=== PATIENT | female | born 1930 | race Caucasian/White ===

== ENCOUNTER 2016-04-26 13:24 | Emergency (ER) | payer MEDICARE ==
[2016-04-26] MEDS ORDERED: Meclizine TAB* 12.5 MG PO ONE (14:33)
[2016-04-26] MEDS ORDERED: Meclizine TAB* 12.5 MG ONE (14:35)
--- NOTE | 2016-04-26 14:47 | RAD ---
INDICATION: Vertigo COMPARISON: None TECHNIQUE: Noncontrast axial source images were acquired from the skull base to the vertex. FINDINGS: Ventricles/sulci: There is cortical atrophy with compensatory dilatation of the CSF spaces. Brain parenchyma: There is periventricular and subcortical white matter change compatible with chronic ischemia. Intracranial hemorrhage:None. Extra-axial spaces: There are no abnormal extra axial fluid collections or evidence of extra-axial mass. Calvarium: There is no calvarial fracture or other calvarial abnormality. Scalp: There is no evidence of scalp or extracalvarial soft tissue abnormality. Paranasal sinuses/mastoid: The paranasal sinuses and mastoid air cells are clear. Other: None. IMPRESSION: CORTICAL ATROPHY WITH CHRONIC MICROVASCULAR ISCHEMIC CHANGES. NO ACUTE FINDINGS.
[2016-04-26 16:19] LABS: Hematocrit 36 % (35-47); Hemoglobin 11.7 g/dl (12.0-16.0); Mean Corpuscular HGB Conc 33 g/dl (31-36); Mean Corpuscular Hemoglobin 30 pg (27-31); Mean Corpuscular Volume 92 fL (80-97); Mean Platelet Volume 10 um3 (7.4-10.4); Red Blood Count 3.88 10^6/ul (4.0-5.4); Red Cell Distribution Width 15 % (10.5-15); White Blood Count 11.3 10^3/ul (3.5-10.8)
[2016-04-26 16:33] LABS: Albumin 3.9 g/dL (3.2-5.2); BUN/Creatinine Ratio 20.4 (8-20); Calcium 9.3 mg/dL (8.6-10.3); EGFR African American 58.9 (>60); EGFR Non-African American 45.8 (>60); Globulin 3.4 g/dL (2-4); Potassium 4.1 mmol/L (3.5-5.0); Total Bilirubin 0.3 mg/dL (0.2-1.0); Total Protein 7.3 g/dL (6.4-8.9)
[2016-04-26 16:34] LABS: Troponin I 0.01 ng/mL (<0.04)
--- NOTE | 2016-04-26 16:43 | RAD ---
INDICATION: 83-year-old with dizziness. Negative CT brain COMPARISON: CT brain same date TECHNIQUE: sagittal T1 FLAIR, axial diffusion, axial T1 FLAIR, axial T2, axial T2 FLAIR, and SWI images were acquired. FINDINGS: Craniocervical junction: The craniocervical junction appears normal. Ventricles/sulci: There is cortical atrophy with compensatory dilatation of the CSF spaces. Brain parenchyma: There are T2-weighted hyperintensities in the periventricular and subcortical white matter consistent with chronic microvascular ischemia. Intracranial hemorrhage: There is no intracranial hemorrhage. Extra-axial spaces: There are no extra-axial fluid collections or masses. Orbits: There are no MR abnormalities of the orbital structures. Paranasal sinuses/mastoid: The paranasal sinuses are clear. The mastoid air cells are well aerated.. Vascular: No abnormalities are seen. Other: None IMPRESSION: CORTICAL ATROPHY WITH CHRONIC MICROVASCULAR ISCHEMIC CHANGE. NO ACUTE FINDINGS.
[2016-04-26 18:17] VITALS: BP 136/64
--- NOTE | 2016-04-28 13:36 | ED ---
Dmitriy Marshall Billy, scribed for César Arriola MD on 04/26/16 at 1415 . Dizziness - HPI Summary HPI Summary: Patient is an 85 year-old female coming to [facility] presenting with intermittent dizziness starting 5 days ago. Patient describes roomspinning sensation that is worse with positional change. She denies any visual changes, nausea, vomiting, or diaphoresis. She is able to ambulate well. She denies any other complaints. - History Of Current Complaint Chief Complaint: EDDizziness Stated Complaint: DIZZY Time Seen by Provider: 04/26/16 14:03 Hx Obtained From: Patient Onset/Duration: Still Present Timing: Days Severity Initially: Moderate Severity Currently: Moderate Character: Room Spinning Aggravating Factor(s): Position Change Alleviating Factor(s): Nothing Associated Signs And Symptoms: Positive: Diaphoresis. Negative: Nausea, Vomiting, Unsteady Gait - Allergies/Home Medications Allergies/Adverse Reactions: Allergies Allergy/AdvReac Type Severity Reaction Status Date / Time No Known Allergies Allergy Verified 03/10/14 12:14 PMH/Surg Hx/FS Hx/Imm Hx Cardiovascular History: Reports: Hx Hypercholesterolemia, Hx Hypertension, Other Cardiovascular Problems/Disorders - MVP Musculoskeletal History: Reports: Hx Arthritis Infectious Disease History: Yes Infectious Disease History: Denies: Traveled Outside the [place] in Last 30 Days - Family History Known Family History: Positive: Hypertension - Social History Alcohol Use: Rare Substance Use Type: Reports: None Smoking Status (MU): Never Smoked Tobacco Review of Systems Negative: Skin Diaphoresis Negative: Photophobia, Blurred Vision, Diplopia Negative: Vomiting, Nausea Neurological: Other - dizzy All Other Systems Reviewed And Are Negative: Yes Physical Exam Triage Information Reviewed: Yes Vital Signs On Initial Exam: Initial Vitals Temp Pulse Resp BP Pulse Ox 98.7 F 83 18 140/89 100 04/26/16 13:26 04/26/16 13:26 04/26/16 13:26 04/26/16 13:26 04/26/16 13:26 Vital Signs Reviewed: Yes Appearance: Positive: Well-Appearing, No Pain Distress Skin: Positive: Warm, Skin Color Reflects Adequate Perfusion, Dry Head/Face: Positive: Normal Head/Face Inspection Eyes: Positive: Normal ENT: Positive: Other - Negative Whittaker-Hallpike Neck: Positive: Supple, Nontender Respiratory/Lung Sounds: Positive: Clear to Auscultation, Breath Sounds Present Cardiovascular: Positive: RRR Abdomen Description: Positive: Nontender, Soft Musculoskeletal: Positive: Normal Neurological: Positive: Normal Psychiatric: Positive: Normal, Affect/Mood Appropriate AVPU Assessment: Alert Diagnostics - Vital Signs Vital Signs Temp Pulse Resp BP Pulse Ox 04/26/16 13:26 98.7 F 83 18 140/89 100 - Laboratory Result Diagrams: 04/26/16 15:50 04/26/16 15:50 Lab Statement: Any lab studies that have been ordered have been reviewed, and results considered in the medical decision making process. - CT brain CT Interpretation Completed By: Radiologist - CORTICAL ATROPHY WITH CHRONIC MICROVASCULAR ISCHEMIC CHANGES. NO ACUTE FINDINGS. - EKG 1332 EKG Interpretation: NSR 76 bpm, RBBB Dizzy Course/Dx - Course Course Of Treatment: Ms. yLle presented with a week of mild vertigo symptoms. Her Whittaker-Halpaike was negative and her wymptoms were equivocal for a central etiology vs peripheral. I spoke with Dt. Lim who recommended an MRI. - Diagnoses Provider Diagnoses: Vertigo - Provider Notifications Discussed Care Of Patient with: Dr. Lim (neurology) @ 1551: recommends brain MRI. Dr. Moore - 1600 change of shift Discharge - Discharge Plan Condition: Stable Disposition: HOME Prescriptions: Meclizine TAB* [Antivert 12.5 TAB*] 25 mg PO TID PRN #20 tab PRN Reason: Dizziness Patient Education Materials: Benign Paroxysmal Positional Vertigo (ED), Dizziness (ED) Referrals: [facility] [place] [facility] [Outside] Non Staff,Doctor [Primary Care Provider] - The documentation as recorded by the Dmitriy ellis Billy accurately reflects the service I personally performed and the decisions made by me, César Arriola MD.
== END 2016-04-26 18:15 | disposition home or self-care (01) ==
LOC: ED 13:24
DX: R42 Dizziness and giddiness (principal); I10 Essential (primary) hypertension; E78.00 Pure hypercholesterolemia, unspecified
CPT/HCPCS: 36415; 70450; 70551; 80053; 83735; 84484; 85025; 93005; 99282; A9270-GY

== ENCOUNTER 2016-05-14 10:46 | Emergency (ER) | payer MEDICARE ==
[2016-05-14] MEDS ORDERED: NS 0.9% 1000 ML* 1,000 ML IV ONE ×2 (13:40→14:34)
[2016-05-14] MEDS ORDERED: Ondansetron INJ* 2 MG/ML VIAL IV ONE (13:40)
[2016-05-14 14:01] LABS: Hematocrit 38 % (35-47); Hemoglobin 12.3 g/dl (12.0-16.0); Mean Corpuscular HGB Conc 33 g/dl (31-36); Mean Corpuscular Hemoglobin 30 pg (27-31); Mean Corpuscular Volume 91 fL (80-97); Mean Platelet Volume 10 um3 (7.4-10.4); Red Blood Count 4.14 10^6/ul (4.0-5.4); Red Cell Distribution Width 15 % (10.5-15); White Blood Count 14.3 10^3/ul (3.5-10.8)
[2016-05-14 14:18] LABS: Albumin 3.8 g/dL (3.2-5.2); C Reactive Protein 213.5 mg/L (< 5.00); Calcium 9.1 mg/dL (8.6-10.3); EGFR African American 34.4 (>60); EGFR Non-African American 26.7 (>60); Globulin 3.8 g/dL (2-4); Potassium 3.2 mmol/L (3.5-5.0); Total Bilirubin 0.4 mg/dL (0.2-1.0); Total Protein 7.6 g/dL (6.4-8.9)
[2016-05-14 15:37] VITALS: BP 123/59
--- NOTE | 2016-05-14 15:54 | ED ---
Rolando, DoctorScarlett, scribed for César Arriola MD on 05/14/16 at 1500 . GI/ HPI - HPI Summary HPI Summary: 85 year old female arrived to [facility] c/o diarrhea for the past three days. She reports very watery diarrhea, as well as nausea, intermittent vomiting, and abdominal cramping. However, she denies any hematochezia. She began taking Amoxicillin two days ago, but was not taking any other Abx prior to onset of her symptoms. She does not currently have a PCP. - History of Current Complaint Chief Complaint: EDAbdPain Time Seen by Provider: 05/14/16 13:15 Stated Complaint: ABD PAIN /DIARRHEA Hx Obtained From: Patient Onset/Duration: Started Days Ago - onset three days ago Timing: Intermittent Severity: Moderate Current Severity: Moderate Pain Intensity: 5 Location of Pain: Diffuse - abdominal cramping Associated Signs and Symptoms: Positive: Nausea, Vomiting, Diarrhea, Abdominal Pain - cramping. Negative: Hematemesis, Blood w/Stool - Allergy/Home Medications Allergies/Adverse Reactions: Allergies Allergy/AdvReac Type Severity Reaction Status Date / Time No Known Allergies Allergy Verified 03/10/14 12:14 PMH/Surg Hx/FS Hx/Imm Hx Endocrine/Hematology History: Denies: Hx Diabetes Cardiovascular History: Reports: Hx Hypercholesterolemia, Hx Hypertension, Other Cardiovascular Problems/Disorders - MVP Denies: Hx Pacemaker/ICD Respiratory History: Denies: Hx Asthma History: Denies: Hx Renal Disease Musculoskeletal History: Reports: Hx Arthritis Sensory History: Denies: Hx Hearing Aid Psychiatric History: Denies: Hx Panic Disorder - Surgical History Surgery Procedure, Year, and Place: RT. KNEE TKR;. GALBLADDER;. APPENDECTOMY; Infectious Disease History: No Infectious Disease History: Denies: Traveled Outside the [place] in Last 30 Days - Family History Known Family History: Positive: Hypertension - Social History Alcohol Use: Rare Substance Use Type: Reports: None Smoking Status (MU): Never Smoked Tobacco Review of Systems Negative: Fever Positive: Abdominal Pain - abdominal cramping, Vomiting, Diarrhea, Nausea All Other Systems Reviewed And Are Negative: Yes Physical Exam Triage Information Reviewed: Yes Vital Signs On Initial Exam: Initial Vitals Temp Pulse Resp BP Pulse Ox 98.5 F 94 18 113/60 97 05/14/16 10:53 05/14/16 10:53 05/14/16 10:53 05/14/16 10:53 05/14/16 10:53 Vital Signs Reviewed: Yes Appearance: Positive: Well-Appearing, No Pain Distress Skin: Positive: Warm, Skin Color Reflects Adequate Perfusion, Dry Head/Face: Positive: Normal Head/Face Inspection Eyes: Positive: Normal ENT: Positive: Normal ENT inspection Neck: Positive: Supple, Nontender Respiratory/Lung Sounds: Positive: Clear to Auscultation, Breath Sounds Present Cardiovascular: Positive: RRR Abdomen Description: Positive: Nontender, Soft Bowel Sounds: Positive: Present Musculoskeletal: Positive: Normal Neurological: Positive: Normal Psychiatric: Positive: Normal, Affect/Mood Appropriate - [place] Coma Scale Coma Scale Total: 15 Diagnostics - Vital Signs Vital Signs Temp Pulse Resp BP Pulse Ox 05/14/16 12:43 98.5 F 84 18 120/57 96 05/14/16 10:53 98.5 F 94 18 113/60 97 - Laboratory Lab Results: Lab Results 05/14/16 05/14/16 Range/Units 13:50 13:50 WBC 14.3 H (3.5-10.8) 10^3/ul RBC 4.14 (4.0-5.4) 10^6/ul Hgb 12.3 (12.0-16.0) g/dl Hct 38 (35-47) % MCV 91 (80-97) fL MCH 30 (27-31) pg MCHC 33 (31-36) g/dl RDW 15 (10.5-15) % Plt Count 156 (150-450) 10^3/ul MPV 10 (7.4-10.4) um3 Neut % (Auto) 83.9 H (38-83) % Lymph % (Auto) 8.8 L (25-47) % Dillon % (Auto) 6.4 (1-9) % Eos % (Auto) 0.6 (0-6) % Baso % (Auto) 0.3 (0-2) % Absolute Neuts (auto) 12.0 H (1.5-7.7) 10^3/ul Absolute Lymphs (auto) 1.3 (1.0-4.8) 10^3/ul Absolute Monos (auto) 0.9 H (0-0.8) 10^3/ul Absolute Eos (auto) 0.1 (0-0.6) 10^3/ul Absolute Basos (auto) 0 (0-0.2) 10^3/ul Absolute Nucleated RBC 0.01 10^3/ul Nucleated RBC % 0 Sodium 132 L (133-145) mmol/L Potassium 3.2 L (3.5-5.0) mmol/L Chloride 99 L (101-111) mmol/L Carbon Dioxide 21 L (22-32) mmol/L Anion Gap 12 H (2-11) mmol/L BUN 36 H (6-24) mg/dL Creatinine 1.80 H (0.51-0.95) mg/dL Est GFR ( Amer) 34.4 (>60) Est GFR (Non-Af Amer) 26.7 (>60) BUN/Creatinine Ratio 20.0 (8-20) Glucose 113 H (70-100) mg/dL Calcium 9.1 (8.6-10.3) mg/dL Total Bilirubin 0.40 (0.2-1.0) mg/dL AST 21 (13-39) U/L ALT 13 (7-52) U/L Alkaline Phosphatase 81 (34-104) U/L C-Reactive Protein 213.50 H (< 5.00) mg/L Total Protein 7.6 (6.4-8.9) g/dL Albumin 3.8 (3.2-5.2) g/dL Globulin 3.8 (2-4) g/dL Albumin/Globulin Ratio 1.0 (1-3) Result Diagrams: 05/14/16 13:50 05/14/16 13:50 Lab Statement: Any lab studies that have been ordered have been reviewed, and results considered in the medical decision making process. GIGU Course/Dx - Course Course Of Treatment: Polly Lyle presented with a C/O wattery diarrhea for the last 3 days. She was found to be pretty dry and rehydrated here. She felt better and had no further stools. I encouraged her to F/U if the diarrhea resumed as we were not able to get a sample. - Diagnoses Provider Diagnoses: Gastroenteritis, Dehydration Discharge - Discharge Plan Condition: Stable Disposition: HOME Patient Education Materials: Gastroenteritis (ED), Dehydration (ED) Referrals: [facility] [place]Outside] Additional Instructions: Follow up with [facility]. The documentation as recorded by the Doctor ellis Tahera accurately reflects the service I personally performed and the decisions made by me, César Arriola MD.
== END 2016-05-14 15:30 | disposition home or self-care (01) ==
LOC: ED 10:46
DX: K52.9 Noninfective gastroenteritis and colitis, unspecified (principal); E86.0 Dehydration; R11.2 Nausea with vomiting, unspecified; R19.7 Diarrhea, unspecified
CPT/HCPCS: 36415; 80053; 85025; 86140; 96374; 99283; J2405

== ENCOUNTER 2016-07-06 09:07 | Observation (INO) | payer MEDICARE ==
[2016-07-06] MEDS ORDERED: Aspirin TAB* 325 MG PO ONE (10:03)
[2016-07-06 10:09] LABS: Hematocrit 36 % (35-47); Hemoglobin 11.9 g/dl (12.0-16.0); Mean Corpuscular HGB Conc 33 g/dl (31-36); Mean Corpuscular Hemoglobin 30 pg (27-31); Mean Corpuscular Volume 91 fL (80-97); Mean Platelet Volume 9 um3 (7.4-10.4); Red Blood Count 3.98 10^6/ul (4.0-5.4); Red Cell Distribution Width 15 % (10.5-15); White Blood Count 10.5 10^3/ul (3.5-10.8)
[2016-07-06 10:25] LABS: Albumin 4.1 g/dL (3.2-5.2); BUN/Creatinine Ratio 24.3 (8-20); Calcium 9.2 mg/dL (8.6-10.3); EGFR African American 62.7 (>60); EGFR Non-African American 48.7 (>60); Globulin 3.6 g/dL (2-4); Potassium 3.8 mmol/L (3.5-5.0); Total Bilirubin 0.5 mg/dL (0.2-1.0); Total Protein 7.7 g/dL (6.4-8.9)
[2016-07-06 10:26] LABS: Troponin I 0.01 ng/mL (<0.04)
--- NOTE | 2016-07-06 10:33 | RAD ---
HISTORY: Chest pain COMPARISONS: None VIEWS:1: Single frontal portable view of the chest at 10:05 AM FINDINGS: LINES AND TUBES: None. CARDIOMEDIASTINAL SILHOUETTE: The aorta is tortuous. The cardiomediastinal silhouette is otherwise normal for portable technique. PLEURA: The costophrenic angles are sharp. No pleural abnormalities are noted. LUNG PARENCHYMA: The lungs are clear. ABDOMEN: The upper abdomen is clear. There is no subphrenic gas. BONES AND SOFT TISSUES: No bone or soft tissue abnormalities are noted. IMPRESSION: NO ACTIVE CARDIOPULMONARY DISEASE.
[2016-07-06] MEDS ORDERED: Ondansetron INJ* 2 MG/ML VIAL IV PRN (11:50)
[2016-07-06] MEDS ORDERED: Acetaminophen TAB* 325 MG PO PRN (11:50)
[2016-07-06] MEDS ORDERED: Meclizine TAB* 12.5 MG PO PRN (11:53)
[2016-07-06] MEDS: Heparin VIAL(*) 5000 UNITS/ML VIAL (FIVE THOUSAND) SUBCUT SCH ×2 (15:42→20:31)
--- NOTE | 2016-07-06 18:08 | HP ---
HISTORY AND PHYSICAL: DATE OF ADMISSION: 07/06/16 PRIMARY CARE PROVIDER: [facility]. ATTENDING PHYSICIAN WHILE IN THE HOSPITAL: Dr. Arlyn Merino * (report dictated by Calixto Fan NP) CHIEF COMPLAINT: Chest pain. HISTORY OF PRESENT ILLNESS: Ms. Lyle is an 85-year-old female patient who carries a history of hypertension, hyperlipidemia, depression, vertigo, cataracts, and a history of mild dementia. She comes into the ER today stating that at around 1:30 in the morning, she had woken up, she does not recall this because of the memory loss, but her son does. She woke up at 1:30. She lives with her son. She started having chest discomfort. She was holding her chest. She did not really quantify the pain or say what the quality of the pain was. She remembers having the chest pain. She did state there was something that was going down her right arm. The son specifically asked if she had any shortness of breath, nausea, or diaphoresis, all of which were denied by the patient. She was given baby aspirin and about half an hour later, the discomfort went away. She denied having any symptoms like this in the upcoming previous days or previous weeks. She said this was a single episode that she had. She denied having any nausea, vomiting, or abdominal pain. She denied feeling short of breath. There have been no recent trips or travel, calf or leg pain, and no recent URI symptoms. She came into the ER, there was concern because she does have some mild risk factors and because of the chest pain, we were asked to evaluate for admission. PAST MEDICAL HISTORY: Significant for: 1. Hypertension. 2. Hyperlipidemia. 3. Depression. 4. Vertigo. 5. Cataracts. 6. Dementia. PAST SURGICAL HISTORY: She has had: 1. Right total knee replacement. 2. Cataract extraction. MEDICATIONS: The home medications according to the patient include: 1. Amlodipine 5 mg p.o. at bedtime. She just took her first dose last night. 2. Meclizine 25 mg p.o. t.i.d. as needed. 3. Lisinopril/hydrochlorothiazide 1 tablet daily. ALLERGIES TO MEDICATIONS: Include no known drug allergies. FAMILY HISTORY: Mother had a history of cancer, as did her father. SOCIAL HISTORY: She does not smoke. She does drink 1 to 2 beers a day. Her surrogate decision maker is her son. REVIEW OF SYSTEMS: There is no documented fever. She denied any significant weight change. There was no double vision. There is no ear discharge. She denies having any rhinorrhea. There was no sore throat. No thyroid enlargement. There is chest pain from my HPI. There was no orthopnea, no nocturnal dyspnea. There was no abdominal pain. No nausea, no vomiting. No dysuria, no frequency. No loss of consciousness. No pruritus and no skin ulceration. Review of 14 systems completed, all others negative. PHYSICAL EXAMINATION GENERAL: At this time, Ms. Lyle is an 85-year-old female patient. She is sitting in the ER stretcher. She does not appear to be in any acute distress. VITAL SIGNS: Reveal blood pressure 128/70, pulse 84, respirations 18, O2 sat 94 %, and temperature 97.2. HEENT: Head: Atraumatic and normocephalic. Eyes: EOMs are intact. Sclerae anicteric and not pale. Throat: Oral mucosa appears moist. No oropharyngeal erythema. NECK: Supple. LUNGS: Clear to auscultation bilaterally. No wheezes, rales, or rhonchi. HEART: Sounds S1 and S2. Regular rate and rhythm. No murmurs, rubs, or gallops. ABDOMEN: Soft, flat, and nontender. Bowel sounds present. EXTREMITIES: Pulses 2+ throughout. She is able to move all 4 extremities with 5/5 strength. NEUROLOGIC: The patient is awake and alert. She is oriented x3. Tongue midline. Marketing Database Analyst are equal. No gross focal deficits. SKIN: Grossly intact. DIAGNOSTIC STUDIES/LAB DATA: Today reveal a WBC of 10.5, RBC of 3.98, hemoglobin 11.9, hematocrit of 36, and platelet count of 206. INR 0.95. Sodium 135, potassium 3.8, chloride of 105, bicarb 22, BUN 26, creatinine 1.07, glucose 98, calcium 9.2. Total bili 0.5, AST 15, ALT 9, alk phos 84. Troponin 0.01. Albumin of 4.1. She did have a chest x-ray obtained today and on my review, I did not appreciate any acute infiltrates or pleural effusion. Radiology read it as no active cardiopulmonary disease. There was an EKG obtained today which showed a normal sinus rhythm. She had a flat T wave in V2, but no ST elevation. She had a right bundle branch block. It was a normal sinus rhythm at a rate of 79, similar to the previous EKG, although that flatten T wave is now new in V2. Old medical records were reviewed. ASSESSMENT AND PLAN: Ms. Lyle is an 85-year-old female patient coming into the ER today with complaints of chest discomfort. There was concern that this discomfort may represent acute coronary syndrome. We were asked to evaluate for admission. She will be admitted under observation status for: 1. Chest pain. At this point, I do think that she warrants an overnight stay. I will go ahead and place her on telemetry. We will continue a baby aspirin. We will cycle her troponins. If they go up, I will get a consult with Cardiology. For the time being though, I think we will get a stress test, serial troponins, check lipids, and A1c in the morning. We will place the patient on telemetry and we will continue to follow. 2. Hypertension. Continue meds as prescribed. 3. Hyperlipidemia. We will check lipid panel and we will treat if needed. 4. Depression. Continue supportive care. 5. Vertigo. Continue p.r.n. meclizine. 6. History of cataracts. Follow with the primary. 7. Dementia. Continue with supportive care. 8. DVT prophylaxis. She is high risk. She will be placed on heparin subcu. 9. Code status. She wishes to be a DNR. 10. Fluids, electrolytes, and nutrition. She can have a heart-healthy diet and then she will be n.p.o. after midnight. TIME SPENT: On the admission was approximately 60 minutes, greater than half the time was spent [id number] with the patient obtaining my history and physical; other half the time was spent going over the plan of care with the patient, implementing the plan of care. I did discuss the plan of care with my attending, Dr. Merino; she is in agreement. CALIXTO FAN NP CC: [facility]* [id number]/[facility] #: [id number] LV
[2016-07-06] MEDS ORDERED: amLODIPine TAB* 5 MG PO SCH (21:00)
[2016-07-07] MEDS: Heparin VIAL(*) 5000 UNITS/ML VIAL (FIVE THOUSAND) SUBCUT SCH ×2 (04:56→14:01)
[2016-07-07 06:35] LABS: Hematocrit 35 % (35-47); Hemoglobin 11.6 g/dl (12.0-16.0); Mean Corpuscular HGB Conc 33 g/dl (31-36); Mean Corpuscular Hemoglobin 31 pg (27-31); Mean Corpuscular Volume 92 fL (80-97); Mean Platelet Volume 10 um3 (7.4-10.4); Red Blood Count 3.78 10^6/ul (4.0-5.4); Red Cell Distribution Width 15 % (10.5-15); White Blood Count 10.6 10^3/ul (3.5-10.8)
[2016-07-07 06:38] LABS: Add Diff/Slide Review? Slide Review Added; Comments Flag Yes
[2016-07-07 06:54] LABS: BUN/Creatinine Ratio 25.8 (8-20); EGFR African American 54.9 (>60); EGFR Non-African American 42.7 (>60); Potassium 4.1 mmol/L (3.5-5.0)
[2016-07-07] MEDS ORDERED: Aspirin Low Dose CHEW TAB* 81 MG PO SCH (09:00)
[2016-07-07] MEDS ORDERED: Hydrochlorothiazide TAB* 25 MG PO SCH (09:00)
[2016-07-07] MEDS ORDERED: Lisinopril TAB* 10 MG PO SCH (09:00)
[2016-07-07 12:24] VITALS: BP 113/66
[2016-07-07] MEDS ORDERED: Regadenoson* 0.4 MG/5 ML SYRINGE ONE (13:30)
--- NOTE | 2016-07-07 14:23 | RAD ---
HISTORY: Chest pain, previous NV, hypertension, dizziness COMPARISONS: None TECHNIQUE: A 1 day stress/rest myocardial perfusion study was performed, with pharmacologic stress. The stress portion was monitored by Dr. Leonardo. Gated SPECT imaging was performed, with CT-based attenuation correction DOSE: Stress: Technetium 99m tetrofosmin, 25.88 millicuries, injected at 12:29 PM on July 07, 2016 Rest: Technetium 99m tetrofosmin, 10.83 millicuries, injected at 6:30 AM on July 07, 2016 Pharmacologic agent: Lexiscan FINDINGS: CARDIAC MONITORING: Baseline right bundle-branch block EF: 60 % TID: 1.01 MOTION: Normal motion, with normal wall thickening. PERFUSION: There are no fixed or reversible perfusion defects. OTHER: None IMPRESSION: NO FIXED OR REVERSIBLE PERFUSION DEFECTS ASSESSMENT: LOW RISK. Based on imaging criteria from ACC/AHA 2002. Guideline Update for the Management of Patient's with Chronic Stable Angina, table 23. Noninvasive Risk Stratification.
--- NOTE | 2016-07-08 06:14 | DS ---
DATE OF ADMISSION: 07/06/16 DATE OF DISCHARGE: 07/07/16 DISCHARGE DIAGNOSES: Atypical chest pain, acute coronary syndrome ruled out, likely gastrointestinal in nature. SECONDARY DIAGNOSES: 1. Hypertension. 2. Hyperlipidemia. 3. Depression. 4. Vertigo. 5. Cataract. 6. Mild dementia. 7. Status post right total knee replacement. 8. Chronic kidney disease stage 3. MEDICATION: 1. Amlodipine 5 mg p.o. at bedtime. 2. Meclizine 25 mg p.o. t.i.d. as needed for dizziness. 3. Lisinopril/hydrochlorothiazide 20/12.5 mg one tablet p.o. daily. HOSPITAL COURSE: Ms. Lyle is an 85-year-old lady with a past medical history as stated above, that woke up around 1:30 in the morning complaining of chest discomfort. For more details about her presentation, I refer you to her history and physical. She was admitted for further evaluation. Serial EKGs showed no acute changes and serial troponins were negative. The patient underwent a pharmacological nuclear stress test that showed no fixed or reversible perfusion defect with an estimated ejection fraction of 60%. In reviewing the patient's history, she had gone to celebrate a girlfriend's birthday at [facility] and she had steak, what is not usual for her, so I suspect her chest discomfort was likely GI in nature secondary to this meal. The patient is medically stable for discharge at this time. I believe a PPI is not indicated at this time as this seems to be an isolated episode, but if she continues to have episodes like this, adding H2 mehrdad or PPI would be an idea. The patient is medically stable to be discharged home today. She will follow up with Dr. Story. PHYSICAL EXAMINATION: Vital Signs: Temperature 98.3, heart rate is 86, respiratory rate is 16, oxygen saturation 98% on room air, blood pressure is 113 /66. General: The patient is a pleasant elderly lady sitting up in bed in no acute distress. CVS: Normal S1, S2. Regular rate and rhythm. Chest: Breath sounds present bilaterally with no added sounds. Extremities: No edema. Neuro : She is alert and oriented x3. Able to move all four extremities. DIET: Heart healthy diet. ACTIVITY: As tolerated. DISPOSITION: To home. STATUS WHILE IN THE HOSPITAL: Observation. Please keep in mind this is a summarized version of this patient's hospital stay. If you need more information, please feel free to call me at or please obtain the full medical record. TIME SPENT: Approximately 40 minutes was spent on this discharge. CC: Chano Story MD, at [facility]* [id number]/[facility] #: [id number] MTDD
== END 2016-07-07 15:35 | disposition home or self-care (01) ==
LOC: ED 09:07 → MEDTELE 11:47
PROVIDERS: ADMIT Hospitalist; ATTEND Internal Medicine
DX: R07.9 Chest pain, unspecified (principal); R42 Dizziness and giddiness; E78.5 Hyperlipidemia, unspecified; N18.3 Chronic kidney disease, stage 3 (moderate); I12.9 Hypertensive chronic kidney disease with stage 1 through stage 4 chronic kidney disease, or unspecified chronic kidney disease; F34.1 Dysthymic disorder; F03.90 Unspecified dementia, unspecified severity, without behavioral disturbance, psychotic disturbance, mood disturbance, and anxiety; Z96.651 Presence of right artificial knee joint
CPT/HCPCS: 36415; 71010; 78452; 80048; 80053; 80061; 83036; 84484; 85025; 85027; 85610; 93005; 93017; 99283; A9270-GY; A9502; G0378; J1644; J2785